=== PATIENT | female | born 1980 | race African-American/Black ===

== ENCOUNTER 2020-04-14 10:13 | Outpatient (CLI) | payer BC, SELFPAY ==
[2020-04-14 11:08] LABS: Hemoglobin A1C 5.3 % (<5.7)
[2020-04-14 11:10] LABS: Beta HCG Quantitative < 2.39 mIU/ML
[2020-04-20 11:35] LABS: FSH 7.9 mIU/mL (***); LH 5.8 mIU/mL (***)
[2020-04-21 05:49] LABS: Progesterone 2.6 ng/mL (***)
== END 2020-04-14 10:14 | disposition home or self-care (01) ==
LOC: ANHLAB 10:15
PROVIDERS: Visit Provider Obstetrics & Gynecology
DX: N92.6 Irregular menstruation, unspecified (principal)
CPT/HCPCS: 36415; 83001; 83002; 83036; 84144; 84443; 84702

== ENCOUNTER 2020-06-21 10:24 | Outpatient (CLI) | payer BC, SELFPAY ==
[2020-06-21 11:17] LABS: Alanine Aminotransferase 17 U/L (4-35); Albumin Level 4.2 g/dL (3.5-5.1); Alkaline Phosphatase 45 U/L (38-126); Anion Gap 4 mmol/L (8-16); Aspartate Amino Transferase 30 U/L (14-36); Bilirubin,Total 0.4 mg/dL (0.2-1.3); Blood Urea Nitrogen 14 mg/dL (7-17); Calcium 9.4 mg/dL (8.4-10.2); Carbon Dioxide 29 mmol/L (22-30); Chloride 104 mmol/L (98-107); Estimated Glomerular Filt Rate > 60; Glucose 98 mg/dL (65-105); Potassium 3.8 mmol/L (3.4-5.0); Sodium 137 mmol/L (137-145)
[2020-06-21 11:56] LABS: HIV 1/2 Ab P24 Ag Result Negative (Negative); Hepatitis B Surface Antigen Negative (Negative)
[2020-06-21 12:13] LABS: Hepatitis C Virus Antibody Negative (Negative)
[2020-06-22 06:46] LABS: Rapid Plasma Reagin Non-Reactive (NonReactive)
[2020-06-25 14:33] LABS: HSV 1 IgM Screen Negative (Negative); HSV 2 IgM Screen Negative (Negative)
== END 2020-06-21 10:25 | disposition home or self-care (01) ==
LOC: ANHLAB 10:26
PROVIDERS: Visit Provider Obstetrics & Gynecology
DX: Z11.3 Encounter for screening for infections with a predominantly sexual mode of transmission (principal)
CPT/HCPCS: 36415; 80053; 86592; 86695; 86696; 86703; 86803; 87340; G0432

== ENCOUNTER 2020-06-29 10:43 | Outpatient (CLI) | payer BC, SELFPAY ==
--- NOTE | ~2020-06-29 | XR_ITS ---
EXAMINATION: XR hysterosalpingogram DATE: 06/29/2020 13:27 INDICATION: Irregular menstruation TECHNIQUE: Multiple fluoroscopic images were obtained during contrast infusion into the endometrial c anal of the uterus by the primary physician. A total of 5 images were recorded. Fluoroscopy exposure time was 1.1 minutes. FINDINGS: The uterine cavity demonstrates normal morphology. The coronal and isthmic segments of the bilateral fallopian tubes are normal. There appears be asymmetric mild relative dilation of the intra-articula r segment of the right fallopian tube relative to the left. There is definitive intraperitoneal spill age of contrast from the left fallopian tube. There appeared to be more delayed peritoneal spillage o f contrast from the right fallopian tube however assessment is limited by the earlier spillage of con trast from the left side which extended medially to the cul-de-sac. IMPRESSION: 1. Asymmetric mild dilation of the intra-articular portion of the right fallopian tube with what appe ared to be more delayed spillage of contrast although definitive determination of patency of the righ t fallopian tube is limited by the earlier spillage of contrast from the normal left fallopian tube. 2. Normal uterus. Reviewed, dictated and finalized at location A. IMPRESSION: 1. Asymmetric mild dilation of the intra-articular portion of the right fallopi an tube with what appeared to be more delayed spillage of contrast although def initive determination of patency of the right fallopian tube is limited by the earlier spillage of contrast from the normal left fallopian tube. 2. Normal uterus.
[2020-06-29 11:35] LABS: Beta HCG Quantitative < 2.39 mIU/ML
--- NOTE | 2020-07-13 15:50 | PM.PROC ---
Procedure Note - Detailed Date of procedure: 07/13/20 Pre-op diagnosis: infertility Post-op diagnosis: same Procedure performed: HSG Description of procedure: AFTER INFORMED CONSENT OBTAINED. SPECULUM INSERTED IN VAGINA. CERVIX CLEANSED WITH BETADINE. CANNULA INSERTED AT CERVICAL ENTRANCE AND TUBING INSERTED. BALLOON INFLATED. THE DYE WAS INJECTED WHILE RADIOLOGIST PERFORMED THE FLUOROSCOPY. ONCE COMPLETED. THE TUBING AND SPECULUM REMOVED. PATIENT TOLERATED PROCEDURE WELL. Surgeon: Rio Falk MD Findings: NORMAL APPEARING UTERINE CAVITY, PATENT LEFT FALLOPIAN TUBE, QUESTIONABLE FLOW ON RIGHT.
== END 2020-06-29 10:44 | disposition home or self-care (01) ==
PROVIDERS: Visit Provider Obstetrics & Gynecology
DX: N92.6 Irregular menstruation, unspecified (principal)
CPT/HCPCS: 36415; 58340; 74740; 84702; Q9966